=== PATIENT | female | born 1940 | race Caucasian/White ===

== ENCOUNTER 2022-02-23 14:17 | Emergency (ER) | payer MEDICARE, OTHER, SELFPAY ==
--- NOTE | ~2022-02-23 | XR_ITS ---
EXAMINATION: XR chest 2V Exam Date/Time: 02/23/2022 14:38 CDT HISTORY: COUGHING AND CONGESTION WITH SOUNDS Comparison: None available. RESULT: Lines, tubes, and devices: None. Lungs and pleura: Mild senescent change, otherwise clear. Cardiomediastinal silhouette: Unremarkable. Other: No acute osseous or upper abdominal finding. IMPRESSION: No acute cardiopulmonary process. Reviewed, dictated and finalized at location K.
[2022-02-23 14:32] VITALS: BP 156/81; PULSE 66; RESP 18; TEMP 36.8; O2SAT 100
--- NOTE | 2022-02-23 14:33 | ED.CHESTPAIN ---
HPI - Chest Pain General Chief Complaint: Upper Respiratory Infection Stated Complaint: cp Time Seen by Provider: 02/23/22 14:37 Mode of arrival: ambulatory Limitations: no limitations History of Present Illness HPI narrative: 81-year-old male presents with concern with cough, chest heaviness and chest pain with coughing. She reports midsternal chest heaviness, chest pain around her bilateral ribs. She reports pain is exacerbated with coughing and deep breathing. She denies left-sided chest pain, left arm pain, left shoulder pain, diaphoresis, nausea. She reports symptoms started about 6 days ago after she planted redding, she thinks something in the soil caused her to have a reaction. She reports sinus congestion, ear pressure. She denies fever, bodies, chills, sweats. She reports she used her grandchild's albuterol nebulizer yesterday twice she reports symptoms may have improved slightly with that. MD complaint: chest pain Related Data Home Medications Medication Instructions Recorded Confirmed amlodipine 5 mg tablet 5 mg PO DAILY 02/23/22 02/23/22 atenolol 25 mg tablet 25 mg PO DAILY 02/23/22 02/23/22 rosuvastatin 10 mg tablet 10 mg PO DAILY 02/23/22 02/23/22 Allergies Allergy/AdvReac Type Severity Reaction Status Date / Time No Known Allergies Allergy Verified 02/23/22 14:37 Review of Systems Review of Systems: CONSTITUTIONAL: Reports malaise, chills, sweats, or fever. EYES: Denies visual changes, redness, or discharge. ENT: Denies rhinorrhea, congestion, otalgia CARDIOVASCULAR: Denies chest pain, palpitations, or edema. RESPIRATORY: Reports cough, chest pain with coughing, dyspnea. MUSCULOSKELETAL: Denies back pain, joint pain NEUROLOGIC: Denies numbness, weakness, or headache. All systems reviewed & are unremarkable except as noted in HPI and below [facility] Comments At time of signature, agree with nursing past medical, surgical, social and family history. There is no relevant family history pertinent to the presenting complaint Exam Narrative: GENERAL: Nontoxic appearing and in no acute distress. HEAD: Normocephalic EYES: PERRLA, conjunctivae clear ENT: Nares clear, clear discharge. Mucous membranes moist. TM pearly felton with dull light reflex bilaterally; no tragal tenderness. Oropharynx erythematous without lesions. Tonsils enlarged and without exudate, no drooling, no hoarseness, no trismus, uvula midline. NECK: Supple. No lymphadenopathy CHEST: Inspiratory and expiratory wheeze noted, rhonchi noted. No rales, or stridor. No respiratory distress, speaks in full sentences. HEART: Regular rate and rhythm. No murmur heard. SKIN: Warm, dry, no rash. NEURO: Alert and oriented x3. PSYCH: Normal mood and affect Course Course Emergency Course: Patient is aware of diagnosis, understands and agrees to treatment plan. Anticipatory guidance given. Patient agrees to follow-up as directed and is aware of reasons to seek care at the emergency department. Portions of this record may have been created with voice recognition software Level of Care: Express Care Visit Vital Signs Vital signs: Vital Signs Temperature 98.2 F 02/23/22 14:32 Pulse Rate 66 02/23/22 14:32 Respiratory Rate 18 02/23/22 14:32 Blood Pressure 156/81 H 02/23/22 14:32 Pulse Oximetry 100 02/23/22 14:32 Oxygen Delivery Room Air 02/23/22 14:32 Temperature 98.2 F 02/23/22 14:32 Pulse Rate 66 02/23/22 14:32 Respiratory Rate 18 02/23/22 14:32 Blood Pressure 156/81 H 02/23/22 14:32 Pulse Oximetry 100 02/23/22 14:32 Oxygen Delivery Room Air 02/23/22 14:32 Reviewed. MDM - Chest Pain MDM Narrative Medical decision making narrative: Differential diagnosis considered: Johnson virus, strep pharyngitis, allergic rhinitis, upper respiratory tract infection, sinusitis, rhinosinusitis, nasopharyngitis. viral pharyngitis, otitis media, otitis externa, pneumonia, bronchitis, viral cough syndrome, viral syndrome
== END 2022-02-23 15:12 | disposition home or self-care (01) ==
PROVIDERS: Emergency Provider Nurse Practitioner
DX: J40 Bronchitis, not specified as acute or chronic (principal); E78.00 Pure hypercholesterolemia, unspecified; I10 Essential (primary) hypertension
CPT/HCPCS: 71046; 99203; G0463